=== PATIENT | female | born 1975 | race American Indian/Alaskan Native ===

== ENCOUNTER 2017-02-20 08:06 | Emergency (ER) | payer MEDICAID ==
[2017-02-20] MEDS ORDERED: DELTASONE PO ONE (10:41)
--- NOTE | 2017-02-20 11:05 | Emergency Department Report ---
ED Rash HPI - HPI Chief Complaint: Skin Rash Stated Complaint: RASH Time Seen by Provider: 02/20/17 10:00 Duration: 5 Days Location: Neck Suspected Cause: Medication Rash Symptoms: Yes Itching, No Facial Swelling, No Tongue/Oral Swelling, No Breathing Difficulties, No Choking Sensation, No Wheezing/Dyspnea, No Peeling, No Blistering, No Fever, No Lightheaded, No Malaise, No Myalgias Severity: moderate Other History: Patient is a 41-year-old female with no prior medical history as stated that about a week ago she noticed a rash on her neck. Patient's his rash was initially just on the right side and small illness. Past week. Patient states she can only recall taken amoxicillin in the bilateral week ago for an infection and other than that she wore a scarf around her neck once. Patient is not sure if it's the amoxicillin over the scratch that caused a rash. She denies fever assess chest/nausea/vomiting/difficulty breathing tongue swelling or swelling or any other problems. ED Review of Systems ROS: Stated complaint: RASH Other details as noted in HPI Constitutional: denies: chills, fever Eyes: denies: eye pain, eye discharge, vision change ENT: denies: ear pain, throat pain Respiratory: denies: cough, shortness of breath, wheezing Cardiovascular: denies: chest pain, palpitations, edema Endocrine: no symptoms reported Gastrointestinal: denies: abdominal pain, nausea, vomiting, diarrhea Genitourinary: denies: urgency, dysuria, frequency, discharge Musculoskeletal: denies: back pain, joint swelling, arthralgia, myalgia Skin: rash, pruritus. denies: lesions, change in color Neurological: denies: headache, weakness, paresthesias Psychiatric: denies: anxiety, depression Hematological/Lymphatic: denies: easy bleeding, easy bruising ED Past Medical Hx - Past Medical History Previous Medical History?: Yes Hx Hypertension: Yes - Surgical History Past Surgical History?: Yes Additional Surgical History: x 4 - Social History Smoking Status: Never Smoker Substance Use Type: None - Medications Home Medications: Home Medications Medication Instructions Recorded Confirmed Last Taken Type Triamcinolone 0.5% [Kenalog 0.5% 1 applic TP TID #2 tube 02/20/17 Unknown Rx CREAM] hydrOXYzine HCL [Atarax] 25 mg PO QHS PRN #20 tablet 02/20/17 Unknown Rx Rash Exam - Exam General: Vital signs noted. No distress. Alert and acting appropriately. HEENT: No Periorbital Edema, No Conjuctival Injection, No Chemosis, No Perioral Edema, No Tongue Edema, No Uvular Edema, No Compromised Airway, No Drooling Lungs: Yes Good Air Exchange (Normal Breath Sounds), No Wheezes, No Ronchi, No Stridor, No Cough, No Labored Respirations, No Retractions, No Use of Accessory Muscles, No Other Abnormal Lung Sounds Heart: Yes Regular, No Murmur Skin: Yes Urticarial Rash, Yes Maculopapular Rash, Yes Erythema, Yes Other ( Nonter to palpation, no weeping, no ulcerations), No Morbilliform rash, No Bulla (e), No Excoriations, No Weeping, No Tenderness, No Edema, No Encrustations Other: Positive: Abdomen Normal, Neurologic Normal, Musculoskeletal Normal ED Course Vital Signs 02/20/17 08:35 Temperature 98.1 F Pulse Rate 82 Respiratory 18 Rate Blood Pressure 156/82 O2 Sat by Pulse 100 Oximetry ED Medical Decision Making - Medical Decision Making 41-year-old female presents with rash to the neck region ED course: Patient received prednisone the ED, Benadryl was not given as patient is driving home. I discussed with her to stop applying gold mireles motion and powder to the rash. I discussed with patient will prescribe her an anti-itch cream that she can apply to rash and Benadryl for the itching. I discussed with her to follow up with primary care in 3-5 days. Patient is in no acute respiratory distress she understands instructions given. I discussed with the patient if she starts to notice worsening of the rash, fever, necrosis to return to ED immediately Critical care attestation.: If time is entered above; I have spent that time in minutes in the direct care of this critically ill patient, excluding procedure time. ED Disposition Clinical Impression: Rash and nonspecific skin eruption, Allergic dermatitis Disposition: - TO HOME OR SELFCARE Is pt being admited?: No Does the pt Need Aspirin: No Condition: Stable Instructions: Contact Dermatitis (ED), Urticaria (ED), Acute Rash (ED) Additional Instructions: Make sure to follow up with the primary care physician as discussed. Take all your medications as you've been prescribed. If you have any worsening symptoms or develop new symptoms please return to ED immediately. Prescriptions: hydrOXYzine HCL [Atarax] 25 mg PO QHS PRN #20 tablet PRN Reason: Itching Triamcinolone 0.5% [Kenalog 0.5% CREAM] 1 applic TP TID #2 tube Referrals: DERIAN MONROE MD [Primary Care Provider] - 3-5 Days RODOLFO PERALTA MD [Referring] - 3-5 Days ARACELI ROGERS MD [Staff Physician] - 3-5 Days Forms: Accompanied Note, Work/School Release Form(ED) Time of Disposition: 11:13
[2017-02-20 11:35] VITALS: BP 148/86
== END 2017-02-20 11:34 | disposition home or self-care (01) ==
LOC: ED 08:06
DX: L23.9 Allergic contact dermatitis, unspecified cause (principal); R21 Rash and other nonspecific skin eruption; I10 Essential (primary) hypertension
CPT/HCPCS: 99282; J7512

== ENCOUNTER 2019-12-18 01:31 | Emergency (ER) | payer MEDICAID ==
[2019-12-18] MEDS ORDERED: FAMOTIDINE 20 MG TAB PO ONE (02:21)
[2019-12-18] MEDS ORDERED: predniSONE 50 MG TAB PO STA (02:21)
[2019-12-18] MEDS ORDERED: diphenhydrAMINE 50 MG/ML VIAL IM ONE (02:21)
--- NOTE | 2019-12-18 02:29 | Emergency Department Report ---
ED Allergic Reaction HPI - General Chief complaint: Allergic Reaction Stated complaint: POSS ALLERGIC REACTION Time Seen by Provider: 12/18/19 02:08 Source: patient Mode of arrival: Ambulatory Limitations: No Limitations - History of Present Illness MD Complaint: allergic reaction, hives -: Gradual, days(s) (3) Exposure: unknown Symptoms: itching. denies: difficulty swallowing, difficulty breathing, orolingual swelling, hoarseness, syncopy, nausea, vomiting Severity: moderate Treatment Prior to Arrival: none - Related Data Previous Rx's Medication Instructions Recorded Last Taken Type Triamcinolone 0.5% [Kenalog 0.5% 1 applic TP TID #2 tube 02/20/17 Unknown Rx CREAM] hydrOXYzine HCL [Atarax] 25 mg PO QHS PRN #20 tablet 02/20/17 Unknown Rx Famotidine [Pepcid] 40 mg PO DAILY #14 tablet 12/18/19 Unknown Rx hydrOXYzine HCL [Atarax] 25 mg PO Q6HR PRN #20 tablet 12/18/19 Unknown Rx predniSONE [Deltasone] 50 mg PO QDAY #5 tab 12/18/19 Unknown Rx Allergies Allergy/AdvReac Type Severity Reaction Status Date / Time No Known Allergies Allergy Unverified 02/20/17 08:34 ED Review of Systems ROS: Stated complaint: POSS ALLERGIC REACTION Other details as noted in HPI Comment: All other systems reviewed and negative ED Past Medical Hx - Past Medical History Previous Medical History?: Yes Hx Hypertension: Yes - Surgical History Past Surgical History?: Yes Additional Surgical History: x 4 - Social History Smoking Status: Never Smoker Substance Use Type: None - Medications Home Medications: Home Medications Medication Instructions Recorded Confirmed Last Taken Type Triamcinolone 0.5% [Kenalog 0.5% 1 applic TP TID #2 tube 02/20/17 Unknown Rx CREAM] hydrOXYzine HCL [Atarax] 25 mg PO QHS PRN #20 tablet 02/20/17 Unknown Rx Famotidine [Pepcid] 40 mg PO DAILY #14 tablet 12/18/19 Unknown Rx hydrOXYzine HCL [Atarax] 25 mg PO Q6HR PRN #20 tablet 12/18/19 Unknown Rx predniSONE [Deltasone] 50 mg PO QDAY #5 tab 12/18/19 Unknown Rx ED Physical Exam - General Limitations: No Limitations General appearance: alert, in no apparent distress - Head Head exam: Present: atraumatic, normocephalic - Eye Eye exam: Present: normal appearance, PERRL, EOMI Pupils: Present: normal accommodation - ENT ENT exam: Present: normal exam, mucous membranes moist - Neck Neck exam: Present: normal inspection, full ROM - Respiratory Respiratory exam: Present: normal lung sounds bilaterally. Absent: respiratory distress, wheezes, rales - Cardiovascular Cardiovascular Exam: Present: regular rate, normal rhythm. Absent: systolic murmur, diastolic murmur, rubs, gallop - GI/Abdominal GI/Abdominal exam: Present: soft, normal bowel sounds - Extremities Exam Extremities exam: Present: normal inspection - Back Exam Back exam: Present: normal inspection - Neurological Exam Neurological exam: Present: alert, oriented X3 - Psychiatric Psychiatric exam: Present: normal affect, normal mood - Skin Skin exam: Present: warm, dry, intact, urticaria (Very few faint hives). Absent: normal color, rash, diaphoretic, pallor, abrasion, ecchymosis ED Course Vital Signs 12/18/19 01:36 EST Temperature 97.5 F L Pulse Rate 110 H Respiratory 18 Rate Blood Pressure 147/96 O2 Sat by Pulse 95 Oximetry ED Medical Decision Making - Medical Decision Making This patient presents with symptoms consistent with acute hypersensitivity reaction, likely acute allergic reaction. Presentation not consistent with acute anaphylaxis (lack of pulmonary, dermatologic, cardiovascular or GI symptoms, lack of hypotension or exposure to known allergen), angioedema, serum sickness(no recent drug exposure, lack of fevers, arthralgias), ingestion of preformed toxin. No evidence of airway compromise or shock at this time. Plan to treat for allergic reaction with H2/H1 blockers, steroids. No indication for epinephrine at this time. Plan Critical care attestation.: If time is entered above; I have spent that time in minutes in the direct care of this critically ill patient, excluding procedure time. ED Disposition Clinical Impression: Allergic reaction Disposition: TO HOME OR SELFCARE Is pt being admited?: No Does the pt Need Aspirin: No Condition: Stable Instructions: Urticaria (ED), Food Allergy (ED), Allergies (ED) Referrals: PRIMARY CARE,MD [Primary Care Provider] - 3-5 Days
[2019-12-18 03:56] VITALS: BP 132/88
== END 2019-12-18 03:52 | disposition home or self-care (01) ==
LOC: ED 01:31
DX: T78.40XA Allergy, unspecified, initial encounter (principal); I10 Essential (primary) hypertension; Z98.890 Other specified postprocedural states; Z79.899 Other long term (current) drug therapy; X58.XXXA Exposure to other specified factors, initial encounter
CPT/HCPCS: 96372; 99282; J1200; J7512